=== PATIENT | male | born 1945 | race Caucasian/White ===

== ENCOUNTER 2022-10-22 17:47 | Inpatient (IN) | payer MEDICARE, OTHER ==
[2022-10-22] MEDS ORDERED: Dextrose 5%-Lactated Ringers 1,000 ML IV SCH (18:30)
[2022-10-22] MEDS ORDERED: Levofloxacin/Dextrose 5%-Water 750 MG in Premix Bag 1 BAG IV ONE (19:23)
[2022-10-22] MEDS ORDERED: Piperacillin/Tazobactam 4.5 GM in Sodium Chloride 0.9% 100 ML IV ONE (22:58)
[2022-10-22] MEDS ORDERED: metroNIDAZOLE/Normal Saline 500 MG in Premix Bag 1 BAG IV SCH (23:30)
[2022-10-23] MEDS: metroNIDAZOLE/Normal Saline 500 MG in Premix Bag 1 BAG IV SCH ×2 (00:59→08:31)
[2022-10-23] MEDS ORDERED: Acetaminophen 325 MG Tab PO PRN (08:38)
[2022-10-23] MEDS ORDERED: Albuterol 0.083% 2.5 MG/3 ML Neb Soln NEB PRN (08:38)
[2022-10-23] MEDS ORDERED: oxyCODONE 5 MG Tab PO PRN (08:38)
[2022-10-23] MEDS ORDERED: Ondansetron 4 MG/2 ML SDV IV PRN (08:38)
[2022-10-23] MEDS ORDERED: Docusate Sodium 100 MG Cap PO PRN (08:38)
[2022-10-23] MEDS ORDERED: Albuterol/Ipratropium 3.0-0.5 MG/3 ML Neb Soln NEB PRN (08:38)
[2022-10-23 09:44] LABS: ESTIMATED GFR 41 mL/min (>60)
[2022-10-23 09:46] LABS: HEMOGLOBIN A1C 7.8 %
[2022-10-23] MEDS ORDERED: Aspirin 325 MG Tab.EC PO ONE (10:00)
[2022-10-23] MEDS ORDERED: Insulin Lispro 100 Unit/ML 3 ML KwikPen SUBCUT SCH (11:30)
== END 2022-10-23 12:00 | DRG 193 ==
LOC: JD.ED 17:47 → JD.MS 22:21
PROVIDERS: ADMIT Pediatrics; ATTEND Pediatrics
PROC: 30233N1 Transfusion of Nonautologous Red Blood Cells into Peripheral Vein, Percutaneous Approach (ICD-10-PCS; principal; 2022-10-22)
DX: J18.9 Pneumonia, unspecified organism (principal); I21.A1 Myocardial infarction type 2; D72.825 Bandemia; J90 Pleural effusion, not elsewhere classified; E66.01 Morbid (severe) obesity due to excess calories; E11.9 Type 2 diabetes mellitus without complications; E78.5 Hyperlipidemia, unspecified; D64.9 Anemia, unspecified; J98.4 Other disorders of lung; N18.32 Chronic kidney disease, stage 3b; R77.8 Other specified abnormalities of plasma proteins; D72.829 Elevated white blood cell count, unspecified; Z20.822 Contact with and (suspected) exposure to COVID-19; H54.7 Unspecified visual loss; H91.90 Unspecified hearing loss, unspecified ear; E78.00 Pure hypercholesterolemia, unspecified; N40.0 Benign prostatic hyperplasia without lower urinary tract symptoms; M10.9 Gout, unspecified; D69.6 Thrombocytopenia, unspecified; N18.30 Chronic kidney disease, stage 3 unspecified; I12.9 Hypertensive chronic kidney disease with stage 1 through stage 4 chronic kidney disease, or unspecified chronic kidney disease; E11.22 Type 2 diabetes mellitus with diabetic chronic kidney disease; M19.90 Unspecified osteoarthritis, unspecified site; Z79.4 Long term (current) use of insulin; Z87.898 Personal history of other specified conditions; Z77.22 Contact with and (suspected) exposure to environmental tobacco smoke (acute) (chronic)
CPT/HCPCS: 36415; 80053; 81001; 82553; 83605; 83735; 83880; 84443; 84484; 85025; 85610; 85730; 86140; 87040 ×2; 87205; 87899; 93005; J1956; J7121; 83036; 84145; 86738; 87070; A9270-GY; J2543; J3490

== ENCOUNTER 2023-07-18 10:27 | Day surgery (SDC) | payer MEDICARE, OTHER ==
[2023-07-18] MEDS: Polymyxin B/Trimethoprim 10 ML Bottle EYERT SCH ×4 (11:21→12:56)
[2023-07-18] MEDS: Brimonidine 0.2% Ophth Soln 5 ML Bottle EYERT SCH ×4 (11:25→12:56)
[2023-07-18] MEDS: Phenylephrine 2.5% Ophth Soln 2 ML Bot EYERT SCH ×6 (11:31→12:37)
[2023-07-18] MEDS: Tropicamide 1% Ophth Soln 15 ML Bottle EYERT SCH ×4 (11:35→12:17)
[2023-07-18] MEDS: Tetracaine HCl/PF 0.5% 4 ML Bottle EYEBOTH SCH ×5 (12:04→12:44)
[2023-07-18] MEDS: Pilocarpine 4% Ophth Soln 15 ML Bot EYERT SCH ×2 (12:05→12:56)
[2023-07-18] MEDS: Cefuroxime 10 MG/ML SYRINGE EYERT SCH ×2 (12:05→12:55)
[2023-07-18] MEDS: Lidocaine 1% PF 2 ML SDV INJECT SCH ×2 (12:05→12:45)
== END 2023-07-18 13:05 | disposition home or self-care (01) ==
LOC: JD.SDS 10:27
PROVIDERS: ATTEND Ophthalmology
DX: E11.36 Type 2 diabetes mellitus with diabetic cataract (principal); H25.811 Combined forms of age-related cataract, right eye; M19.90 Unspecified osteoarthritis, unspecified site; E78.00 Pure hypercholesterolemia, unspecified; I10 Essential (primary) hypertension; N40.0 Benign prostatic hyperplasia without lower urinary tract symptoms; M10.9 Gout, unspecified; Z95.9 Presence of cardiac and vascular implant and graft, unspecified; Z98.42 Cataract extraction status, left eye; Z96.1 Presence of intraocular lens; Z79.4 Long term (current) use of insulin; Z83.518 Family history of other specified eye disorder
CPT/HCPCS: 66984; A9270; J0697; V2632; 00142; 99100; J3490